=== PATIENT | female | born 1995 | race Caucasian/White ===

== ENCOUNTER 2017-09-02 12:45 | Inpatient (IN) | payer BC ==
[2017-09-02 15:44] LABS: ADD MAN DIFF? NO
[2017-09-02 15:46] LABS: WHITE BLOOD COUNT 9.2 10^3/ul (4.8-10.8)
[2017-09-02 15:46] LABS: BASOPHILS % 0.2 % (0.0-2.0); EOSINOPHILS % 0.1 % (0.0-7.0); HEMATOCRIT 39.4 % (37.0-47.0); LYMPHOCYTES # 1.4 10^3/ul (0.8-2.9); LYMPHOCYTES % 15.5 % (15.0-51.0); MEAN CORPUSCULAR HEMOGLOBIN 32.8 pg (29.0-33.0); MEAN CORPUSCULAR VOLUME 99.5 fl (82.0-101.0); MEAN PLATELET VOLUME 10.3 fl (7.4-10.4); MONOCYTE # 0.7 10^3/ul (0.3-0.9); NEUTROPHILS % 75.9 % (39.0-77.0); PLATELET COUNT 197 10^3/UL (140-415); RED BLOOD COUNT 3.96 10^6/ul (4.20-5.40); RED CELL DISTRIBUTION WIDTH 12.7 % (11.5-14.5)
[2017-09-02] MEDS ORDERED: CARBOPROST 250 MCG INJ IM ×2 (16:00→19:30)
[2017-09-02] MEDS ORDERED: LIDOCAINE 1% (MPF) 30 ML INJ INJ (16:00)
[2017-09-02] MEDS ORDERED: METHYLERGONOVINE 0.2 MG INJ IM ×2 (16:00→19:30)
[2017-09-02] MEDS ORDERED: MISOPROSTOL 200 MCG TAB PR ×2 (16:00→19:30)
[2017-09-02] MEDS ORDERED: OXYTOCIN 30 UNITS/LR 500 ML IV ×4 (16:00→19:30)
[2017-09-02 16:25] LABS: INR 0.87; PROTIME 11.9 Sec (11.9-14.9); PT RATIO 0.9
[2017-09-02 16:26] LABS: PARTIAL THROMBOPLASTIN TIME 25.7 Sec (25.0-35.0)
[2017-09-02] MEDS: LACTATED RINGER'S 1,000 ML IV (19:25)
[2017-09-02] MEDS ORDERED: IBUPROFEN 600 MG TAB PO (19:30)
[2017-09-02] MEDS: OXYTOCIN 30 UNITS/LR 500 ML IV (20:01)
[2017-09-02 20:32] LABS: HEPATITIS B SURFACE ANTIGEN NEGATIVE (NEGATIVE)
[2017-09-02] MEDS: LEVETIRACETAM 250 MG TAB PO (21:41)
[2017-09-03] MEDS ORDERED: FENTAnyl 2MCG/ML-ROPIV 0.2% 100 ML (01:49)
[2017-09-03] MEDS ORDERED: HYDROmorphONE 0.5 MG/0.5 ML SYG IV ×2 (02:00)
[2017-09-03] MEDS ORDERED: FENTAnyl 2MCG/ML-ROPIV 0.2% 100 ML BAG EPI (02:00)
[2017-09-03] MEDS ORDERED: NALOXONE (0.4 MG/ML) INJ IV (02:00)
[2017-09-03] MEDS: LACTATED RINGER'S 1,000 ML IV (02:39)
[2017-09-03] MEDS: MINERAL OIL LIGHT 10 ML VIAL TOP (03:31)
[2017-09-03] MEDS: OXYTOCIN 30 UNITS/LR 500 ML IV ×4 (03:38→08:37)
[2017-09-03] MEDS ORDERED: METHYLERGONOVINE 0.2 MG INJ IM (04:00)
[2017-09-03] MEDS ORDERED: OXYCODONE/ASPIRIN (4.88/325) TAB PO ×2 (04:00)
[2017-09-03] MEDS ORDERED: DIBUCAINE 1% 30 GM OINT PR (04:00)
[2017-09-03] MEDS ORDERED: OXYTOCIN 30 UNITS/LR 500 ML IV (04:00)
[2017-09-03] MEDS ORDERED: SENNA/DOCUSATE NA (8.6MG/50MG) TAB PO (04:00)
[2017-09-03] MEDS ORDERED: NACL 0.9% 3 ML SYG IV (04:00)
[2017-09-03] MEDS ORDERED: MISOPROSTOL 200 MCG TAB PR (04:00)
[2017-09-03] MEDS ORDERED: CARBOPROST 250 MCG INJ IM (04:00)
[2017-09-03] MEDS ORDERED: DIPHENHYDRAMINE 25 MG CAP PO (04:00)
[2017-09-03] MEDS ORDERED: ONDANSETRON 4 MG INJ IV (04:00)
[2017-09-03] MEDS: IBUPROFEN 600 MG TAB PO ×3 (06:28→18:20)
[2017-09-03] MEDS: SENNA/DOCUSATE NA (8.6MG/50MG) TAB PO ×2 (08:37→21:26)
[2017-09-03] MEDS: WITCH HAZEL/GLYCERIN PAD PR (08:37)
[2017-09-03] MEDS: LANOLIN 7 GM TUBE TOP (08:37)
[2017-09-03] MEDS: BENZOCAINE 20% 56 ML SPRAY TOP (08:38)
[2017-09-03] MEDS: LEVETIRACETAM 250 MG TAB PO ×2 (12:13→21:26)
[2017-09-03 17:38] LABS: RAPID PLASMA REAGIN NONREACTIVE (NR)
[2017-09-04] MEDS: IBUPROFEN 600 MG TAB PO ×3 (00:37→12:16)
[2017-09-04 07:10] LABS: ADD MAN DIFF? NO
[2017-09-04 07:16] LABS: WHITE BLOOD COUNT 7.9 10^3/ul (4.8-10.8)
[2017-09-04 07:16] LABS: BASOPHILS % 0.3 % (0.0-2.0); EOSINOPHILS # 0.1 10^3/ul (0.0-0.5); EOSINOPHILS % 0.9 % (0.0-7.0); HEMATOCRIT 35.7 % (37.0-47.0); HEMOGLOBIN 11.6 g/dl (12.0-16.0); LYMPHOCYTES # 2.2 10^3/ul (0.8-2.9); LYMPHOCYTES % 27.7 % (15.0-51.0); MEAN CORPUSCULAR HGB CONC 32.5 g/dl (32.0-37.0); MEAN CORPUSCULAR VOLUME 101.4 fl (82.0-101.0); MEAN PLATELET VOLUME 10.3 fl (7.4-10.4); MONOCYTE # 0.7 10^3/ul (0.3-0.9); MONOCYTES % 9.2 % (0.0-11.0); NEUTROPHIL # 4.9 10^3/ul (1.6-7.5); NEUTROPHILS % 61.4 % (39.0-77.0); PLATELET COUNT 186 10^3/UL (140-415); RED BLOOD COUNT 3.52 10^6/ul (4.20-5.40); RED CELL DISTRIBUTION WIDTH 12.8 % (11.5-14.5)
[2017-09-04] MEDS: LEVETIRACETAM 250 MG TAB PO (08:30)
[2017-09-04] MEDS: SENNA/DOCUSATE NA (8.6MG/50MG) TAB PO (08:30)
[2017-09-04] MEDS: BENZOCAINE 20% 56 ML SPRAY TOP (13:14)
[2017-09-04] MEDS: WITCH HAZEL/GLYCERIN PAD PR (13:14)
== END 2017-09-04 13:30 | disposition home or self-care (01) | DRG 775 ==
LOC: PP1 09-03 05:43 → L-D 12:45
PROVIDERS: Obstetrics & Gynecology
PROC: 10E0XZZ Delivery of Products of Conception, External Approach (ICD-10-PCS; principal; 2017-09-03)
DX: O36.5930 Maternal care for other known or suspected poor fetal growth, third trimester, not applicable or unspecified (principal); Z3A.39 39 weeks gestation of pregnancy; Z37.0 Single live birth
CPT/HCPCS: 62319; 76815; 85025; 85610; 85730; 86592; 86850; 86900; 86901; 87340; 88307; 99464